=== PATIENT | male | born 1960 | race Caucasian/White ===

== ENCOUNTER 2019-06-07 16:28 | Outpatient (CLI) | payer OTHER, SELFPAY ==
--- NOTE | 2019-06-07 | XR_ITS ---
WS: [id number] Chest 2 views, 06/07/2019 Clinical Data: COUGH PERSISTANT Comparison: PA and lateral chest, 03/06/2018. Findings: No nodules, masses or effusions are seen. The heart is normal. The pulmonary vascularity is not increased. No pneumonia or pneumothorax is seen. XR/XR chest 2V* [id number] Impression: Negative chest.
== END 2019-06-07 16:29 | disposition home or self-care (01) ==
LOC: RADOUTREAD 16:36
PROVIDERS: Family Provider Nurse Practitioner; PCP Nurse Practitioner; Referring Provider Nurse Practitioner Family; Visit Provider Nurse Practitioner Family
DX: R05 Cough (principal)

== ENCOUNTER → 2021-06-04 08:47 | Outpatient (BNVA) | payer OTHER, SELFPAY | PROVIDERS: Visit Provider Nurse Practitioner | DX: I10 Essential (primary) hypertension (principal) | CPT/HCPCS: 80053; 80061; 81000; 84443; 85025 ==

== ENCOUNTER 2021-06-21 08:28 | Outpatient (CLI) | payer OTHER, SELFPAY ==
--- NOTE | 2021-06-21 10:00 | CT_ITS ---
WS: [id number] CT ABDOMEN AND PELVIS NONCONTRAST HISTORY: R10.9 - Unspecified abdominal pain TECHNIQUE: Imaging performed through the abdomen and pelvis. Coronal and sagittal reformats are submi tted. All CT scans at [facility] use at least one of these dose optimization techniques: auto mated exposure control; mA and/or kV adjustment per patient size (includes targeted exams where dose is matched to clinical indication); or iterative reconstruction. DLP: 1632.03 mGy.cm COMPARISON: None available. Lower thorax: Lung bases are clear. Moderate cardiomegaly. Small hiatal hernia. Oral contrast in the distal esophagus. Liver: Mild heterogeneity and hepatic steatosis. There are a few scattered granulomata. Limited visua lization and evaluation of the liver without IV contrast. No mass identified. Gallbladder: Normal gallbladder. Pancreas: Normal size and attenuation. Normal pancreatic duct. No pancreatitis or mass. Spleen: Normal spleen with granulomata. Adrenal glands: Normal. No mass. Right kidney: Normal size kidney. Nonobstructing calcifications in the lower pole. No hydronephrosis or mass identified. Left kidney: Normal size kidney with no mass or hydronephrosis. Aorta: Mild atherosclerosis abdominal aorta with no aneurysm. No free fluid, intraperitoneal air or significant lymphadenopathy. GI tract: Hooks distended stomach. No small bowel obstruction. The appendix is not definitely identi fied. No history of appendicitis. There is no evidence for acute appendicitis. No submucosal thickeni ng. There are several diverticula in the sigmoid colon without obstruction. Abdominal wall: Negative. No hernia. Pelvis: Prostate gland calcification. Prostate is not significantly enlarged. Visualized bladder is n ormal. No adenopathy or fluid. Osseous structures: Moderate degenerative disc disease at L4-5 and L5-S1. Sclerotic focus in the LEFT femoral neck is probably a bone island. CT/CT abdomen pelvis wo con [id number] IMPRESSION: 1. Mild sigmoid diverticulosis without acute diverticulitis. 2. Mild atherosclerosis aorta. 3. Hepatic steatosis. 4. No ascites or adenopathy.
[2021-06-21] MEDS: iohexol 300 mg/mL 50 mL Btl PO (13:14)
== END 2021-06-21 08:29 | disposition home or self-care (01) ==
LOC: RAD 08:34
PROVIDERS: PCP Nurse Practitioner; Visit Provider Nurse Practitioner
DX: K57.30 Diverticulosis of large intestine without perforation or abscess without bleeding (principal); I70.0 Atherosclerosis of aorta; K76.0 Fatty (change of) liver, not elsewhere classified
CPT/HCPCS: 74176

== ENCOUNTER → 2021-07-19 10:37 | Outpatient (BNVA) | payer OTHER, SELFPAY | PROVIDERS: PCP Nurse Practitioner; Visit Provider Nurse Practitioner Family | DX: Z20.822 Contact with and (suspected) exposure to COVID-19 (principal); R05.9 Cough, unspecified | CPT/HCPCS: 87400; 87635 ==

== ENCOUNTER → 2021-09-04 10:40 | Outpatient (BNVA) | payer OTHER, SELFPAY | PROVIDERS: PCP Nurse Practitioner; Visit Provider Nurse Practitioner | DX: I10 Essential (primary) hypertension (principal) | CPT/HCPCS: 80053; 80061 ==

== ENCOUNTER → 2021-12-04 08:16 | Outpatient (BNVA) | payer OTHER, SELFPAY | PROVIDERS: PCP Nurse Practitioner; Visit Provider Nurse Practitioner | DX: I10 Essential (primary) hypertension (principal); E78.5 Hyperlipidemia, unspecified | CPT/HCPCS: 80053; 80061; 85025 ==

== ENCOUNTER 2022-05-17 05:36 | Day surgery (SDC) | payer OTHER, SELFPAY ==
[2022-05-15 08:05] VITALS: BMI 30.5
[2022-05-17 05:59] VITALS: BP 117/88; PULSE 66; RESP 18; TEMP 36.1; O2SAT 96
[2022-05-17] MEDS: sodium chloride 0.9% 1,000 ML 30 ML IV (06:07)
--- NOTE | 2022-05-17 06:45 | ANES.PREANE2 ---
Pre-Anesthetic Assessment Height/Weight: Height 1.83 m Weight 102.058 kg Temp Pulse Resp BP Pulse Ox O2 Del Method 97 F L 66 18 117/88 96 05/17/22 05:59 05/17/22 05:59 05/17/22 05:59 05/17/22 05:59 05/17/22 05:59 05/17/22 05:59 Preop Diagnosis: positive colorectal cancer screening Operation Date: 05/17/22 07:00 Proposed Procedures p Colonoscopy 05977,R19.5(Not Applicable) - Doug Velasco DO Familial anesthetic complications: None Was Beta Radha taken within 24 hours: N/A Was Clonidine taken within 24 hours: N/A Last intake: Intake Last Liquid Date 05/16/22 Last Liquid Time 20:30 Last Solid Date 05/15/22 Last Solid Time 18:00 Social Alcohol (daily ) and Tobacco (chew ) Exam alert, oriented x 3, clear to auscultation bilaterally and regular rate & rhythm Airway Submandibular: within normal limits Cervical ROM: within normal limits Mallampati: Class II Dentition: other (poor dentition, multiple broken/ chipped) History/ROS No significant history except as noted Pulmonary None reported CV/HEM Atrial Fibrillation (last Xarelto dose 05/15/22) and Hypertension None reported Hepatic None reported GI None reported Metabolic None reported Musc/skel None reported Neuropsych None reported Anesthetic Plan ASA status: 3 Anesthesia: Anesthesia Evaluation and MAC Risk of > 500 ml blood loss (7ml/kg in children): No Medications/Allergies Home Medications Medication Instructions Recorded Confirmed Last Taken Type B.coagulans 2 billion 1 cap PO DAILY 06/04/21 05/17/22 05/16/22 History cell-digestive enzymes combo no.10 capsule (Digestive Advantage Probiotics Plus Gas) ibuprofen 200 mg capsule 200 mg PO Q6H PRN Pain 06/04/21 05/17/22 05/16/22 History omega-3 fatty acids 1,000 mg 1,000 mg PO DAILY 06/04/21 05/15/22 05/15/22 History capsule (Fish Oil Concentrate) aspirin 81 mg tablet,delayed 81 mg PO DAILY #90 tabs 07/09/21 05/17/22 05/16/22 Rx release (Adult Low Dose Aspirin) irbesartan 300 mg tablet (Avapro) 300 mg PO DAILY #90 tabs 01/02/22 05/17/22 05/16/22 Rx rivaroxaban 2.5 mg tablet (Xarelto) 2.5 mg PO BID #60 tabs 01/02/22 05/17/22 05/16/22 Rx rosuvastatin 5 mg tablet (Crestor) 5 mg PO DAILY #90 tabs 01/02/22 05/17/22 05/16/22 Rx diltiazem HCl 300 mg 300 mg PO DAILY #90 caps 04/15/22 05/17/22 05/16/22 Rx capsule,extended release 24 hr Allergies Allergy/AdvReac Type Severity Reaction Status Date / Time No Known Allergies Allergy Verified 05/15/22 08:02 Current Medications Generic Name Dose Route Start Last Admin Trade Name Alyq PRN Reason Stop Dose Admin Sodium Chloride 1,000 mls @ 30 mls/hr 05/17/22 06:00 05/17/22 06:07 Sodium Chloride 0.9% IV 05/18/22 05:59 30 mls/hr .Q24H CROW Administration PFSH Anesthesia Medical History Diverticula, colon Dyslipidemia Essential hypertension Fatty infiltration of liver Paroxysmal atrial fibrillation Surgical History History of shoulder surgery Bilateral History of surgery on wrist Carpel tunnel bilateral Family History Mother Diabetes Hypertension Father Hypertension Grandfather Hypertension Other Heart disease Denies family history of Chronic kidney disease (CKD) Suicide Lung disease Cancer Stroke Social History Smoking and tobacco status: current every day smoker (chews) smokeless tobacco Second hand smoke exposure: No Smoking risk assessment/counseling performed?: No Alcohol intake: current Alcohol intake frequency: 0-2 Drinks per Day Alcohol type: beer Desire information about alcohol rehabilitation?: No Counseling given: No Desire information about substance/drug rehabilitation?: No Counseling given: No Adopted: No Caregiver/support person: No Lives independently: Yes Household members: spouse Housing: House Marital status: Number of children: 3 service: No Current occupational status: employed Pets and animals: Yes History of recent travel: No Current gender identity: Male Data Anesthesia Cardiac Studies: No Data to Display
--- NOTE | 2022-05-17 07:02 | PM.HP ---
Providers/Chief Complaint Primary Care Provider: NEGRITA Bean Chief Complaint: Other fecal abnormalities History of Present Illness Ernesto Winslow is a 62 year old male here for colonoscopy Medications/Allergies Home Medications Medication Instructions Recorded Confirmed Last Taken Type B.coagulans 2 billion 1 cap PO DAILY 06/04/21 05/17/22 05/16/22 History cell-digestive enzymes combo no.10 capsule (Digestive Advantage Probiotics Plus Gas) ibuprofen 200 mg capsule 200 mg PO Q6H PRN Pain 06/04/21 05/17/22 05/16/22 History omega-3 fatty acids 1,000 mg 1,000 mg PO DAILY 06/04/21 05/15/22 05/15/22 History capsule (Fish Oil Concentrate) aspirin 81 mg tablet,delayed 81 mg PO DAILY #90 tabs 07/09/21 05/17/22 05/16/22 Rx release (Adult Low Dose Aspirin) irbesartan 300 mg tablet (Avapro) 300 mg PO DAILY #90 tabs 01/02/22 05/17/22 05/16/22 Rx rivaroxaban 2.5 mg tablet (Xarelto) 2.5 mg PO BID #60 tabs 01/02/22 05/17/22 05/16/22 Rx rosuvastatin 5 mg tablet (Crestor) 5 mg PO DAILY #90 tabs 01/02/22 05/17/22 05/16/22 Rx diltiazem HCl 300 mg 300 mg PO DAILY #90 caps 04/15/22 05/17/22 05/16/22 Rx capsule,extended release 24 hr Allergies Allergy/AdvReac Type Severity Reaction Status Date / Time No Known Allergies Allergy Verified 05/15/22 08:02 PFSH Acute PFSH: Medical History Diverticula, colon Dyslipidemia Essential hypertension Fatty infiltration of liver Paroxysmal atrial fibrillation Surgical History History of shoulder surgery Bilateral History of surgery on wrist Carpel tunnel bilateral Family History Mother Diabetes Hypertension Father Hypertension Grandfather Hypertension Other Heart disease Denies family history of Chronic kidney disease (CKD) Suicide Lung disease Cancer Stroke Social History Smoking and tobacco status: current every day smoker (chews) smokeless tobacco Second hand smoke exposure: No Smoking risk assessment/counseling performed?: No Alcohol intake: current Alcohol intake frequency: 0-2 Drinks per Day Alcohol type: beer Desire information about alcohol rehabilitation?: No Counseling given: No Desire information about substance/drug rehabilitation?: No Counseling given: No Adopted: No Caregiver/support person: No Lives independently: Yes Household members: spouse Housing: House Marital status: Number of children: 3 service: No Current occupational status: employed Pets and animals: Yes History of recent travel: No Current gender identity: Male Vitals/I&O/Wt Last Vital Signs Temp 97 F L 05/17/22 05:59 Pulse 66 05/17/22 05:59 Resp 18 05/17/22 05:59 BP 117/88 05/17/22 05:59 Pulse Ox 96 05/17/22 05:59 O2 Del Method 05/17/22 05:59 Weight last 48 hrs Weight 225 lb A&P Assessment and plan (1) Positive colorectal cancer screening using Cologuard test: Plan Colonoscopy Attestations Medical Necessity Statement*: Home Coding Level of Care Code Acute 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
[2022-05-17 07:33] VITALS: BP 122/84; PULSE 75; RESP 20; TEMP 36.1; O2SAT 97
[2022-05-17 07:47] VITALS: BP 117/77; PULSE 64; RESP 20; O2SAT 97
--- NOTE | 2022-05-17 14:34 | ANE.PACU2 ---
Inpatient post-anesthesia follow up: Airway intact: Yes Vital signs: Temperature 97 F Pulse Rate 64 Respiratory Rate 20 Blood Pressure 117/77 Pulse Oximetry 97 Oxygen Delivery Me thod Room Air Oxygen Flow Rate 3 Fraction of Inspir ed Oxygen Hydration adequate: Yes Nausea and vomiting: No Pain level: 1 Mental status: Baseline
== END 2022-05-17 07:55 | disposition home or self-care (01) ==
PROVIDERS: PCP Nurse Practitioner; Visit Provider Surgery
PROC: 0DJD8ZZ Inspection of Lower Intestinal Tract, Via Natural or Artificial Opening Endoscopic (ICD-10-PCS; CPT 45378; principal; 2022-05-17 07:00)
DX: R19.5 Other fecal abnormalities (principal); D12.2 Benign neoplasm of ascending colon; D12.5 Benign neoplasm of sigmoid colon; D12.8 Benign neoplasm of rectum; K57.30 Diverticulosis of large intestine without perforation or abscess without bleeding; Z79.82 Long term (current) use of aspirin; E78.5 Hyperlipidemia, unspecified; I10 Essential (primary) hypertension; I48.0 Paroxysmal atrial fibrillation; F17.220 Nicotine dependence, chewing tobacco, uncomplicated
CPT/HCPCS: 45385; 88305; J2704; J7030

== ENCOUNTER → 2023-01-01 08:17 | Outpatient (BNVA) | payer OTHER, SELFPAY | PROVIDERS: PCP Nurse Practitioner; Visit Provider Nurse Practitioner | DX: Z12.5 Encounter for screening for malignant neoplasm of prostate (principal); E78.5 Hyperlipidemia, unspecified; I10 Essential (primary) hypertension; I48.91 Unspecified atrial fibrillation; K76.0 Fatty (change of) liver, not elsewhere classified | CPT/HCPCS: 80053; 80061; 85025; G0103 ==

== ENCOUNTER → 2023-07-01 13:43 | Outpatient (BNVA) | payer OTHER, SELFPAY | PROVIDERS: PCP Nurse Practitioner; Visit Provider Nurse Practitioner | DX: I10 Essential (primary) hypertension (principal); I48.91 Unspecified atrial fibrillation | CPT/HCPCS: 80053; 80061; 85025 ==

== ENCOUNTER → 2023-12-23 13:21 | Outpatient (BNVA) | payer OTHER, SELFPAY | PROVIDERS: PCP Nurse Practitioner; Visit Provider Nurse Practitioner | DX: I10 Essential (primary) hypertension (principal); I48.20 Chronic atrial fibrillation, unspecified | CPT/HCPCS: 80053; 80061; 85025 ==

== ENCOUNTER → 2024-06-15 08:35 | Outpatient (BNVA) | payer OTHER, SELFPAY | PROVIDERS: PCP Nurse Practitioner; Visit Provider Nurse Practitioner | DX: I10 Essential (primary) hypertension (principal); I48.91 Unspecified atrial fibrillation; E78.5 Hyperlipidemia, unspecified; Z12.5 Encounter for screening for malignant neoplasm of prostate | CPT/HCPCS: 80053; 80061; G0103 ==

== ENCOUNTER 2024-09-26 14:48 | Inpatient (IN) | payer OTHER, SELFPAY ==
[2024-09-26] VITALS (40 sets, daily range): BP systolic 123–171; BP diastolic 73–105; PULSE 47–71; RESP 12–26; TEMP 36.4–36.8; O2SAT 93–99
--- NOTE | 2024-09-26 14:52 | XRR_ITS ---
PROCEDURE INFORMATION: Exam: XR Chest Exam date and time: 09/26/2024 3:04 PM Age: 64 years old Clinical indication: Pain; Chest pressure; Additional info: Cp TECHNIQUE: Imaging protocol: Radiologic exam of the chest. Views: 1 view. COMPARISON: CR XR chest 2V* [id number] 06/07/2019 10:02 AM FINDINGS: Lungs: Unremarkable. No consolidation. Pleural spaces: Unremarkable. No pleural effusion. No pneumothorax. Heart/Mediastinum: Unremarkable. No cardiomegaly. Bones/joints: Unremarkable. XR/XR chest 1V portable [id number] IMPRESSION: No acute findings.
--- NOTE | 2024-09-26 14:56 | ECG_ITS ---
[facility]24[facility]26 Pat Name: Ernesto Winslow Department: Room: Gender: Male Patient Access Manager: : 1960 Requested By: Marcella Cotton Order Number: [id number] Reading MD: DARYL NAQVI Measurements Intervals [place] Rate: 74 P: 0 RI: 0 QRS: 58 QRSD: 91 T: 92 QT: 360 QTc: 400 Interpretive Statements ATRIAL FIBRILLATION NONSPECIFIC ST & T-WAVE ABNORMALITY ABNORMAL RHYTHM ECG No previous ECG available for comparison Electronically Signed On 09-27-2024 20:59:07 CDT by DARYL NAQVI [email or web address]
[2024-09-26 15:20] LABS: Basophils % 0.4 %; Eosinophils # 0.1 10^3/uL (0.0-0.8); Eosinophils % 0.8 %; Hematocrit 44.4 % (37-53); Lymphocytes # 1.6 10^3/uL (0.8-4.8); Lymphocytes % 19.9 %; Mean Corpuscular HGB Conc 33.1 g/dL (30-55); Mean Corpuscular Hemoglobin 31.1 pg (27-33); Mean Corpuscular Volume 94.1 fl (82-101); Mean Platelet Volume 10.2 fL (7.4-10.4); Monocytes # 0.7 10^3/uL (0.2-0.9); Monocytes % 8.8 %; Neutrophils # 5.48 10^3/uL (1.8-7.7); Neutrophils % 69.8 %; Nucleated Red Blood Cells % 0 %; Platelet Count 191 10^3/cmm (157-399); Red Blood Count 4.72 10^6/uL (3.85-5.65); Red Cell Distribution Width 12.4 % (12.1-15.1); White Blood Count 7.84 10^3/uL (3.29-11.43)
[2024-09-26 15:32] LABS: INR 1.05 (0.8-1.2)
[2024-09-26 15:37] LABS: Alanine Aminotransferase 28 U/L (0-41); Albumin Level 4.4 g/dL (3.5-5.2); Alkaline Phosphatase 84 U/L (40-130); Anion Gap 16.2 (5-19); Aspartate Amino Transferase 18 U/L (0-40); Blood Urea Nitrogen 14 mg/dL (8-23); Carbon Dioxide 24 mmol/L (22-29); Chloride 99 mmol/L (98-107); Creatinine Clr Calc Pharmacy 117.7849; Globulin 2.8 g/dL (1.3-4.6); Glomerular Filtration Rate 97.6 mL/min (90-130); Glucose 97 mg/dL (65-115); Lipase 21 U/L (13-60); Osmolality Calculated 280 mOsm/kg (285-295); Potassium 4.2 mmol/L (3.5-5.1); Sodium 135 mmol/L (136-145); Total Bilirubin 0.3 mg/dL (0.15-1.2); Total Protein 7.2 g/dL (6.6-8.7)
[2024-09-26 15:38] LABS: Troponin(5th) Baseline 30 ng/L (0-15)
--- NOTE | 2024-09-26 15:49 | W.ED.CHESTPA ---
HPI - Chest Pain General: Chief Complaint: Chest Pain Stated Complaint: cp/tingle in left arm Time Seen by Provider: 09/26/24 15:26 Source: patient Mode of arrival: ambulatory Limitations: no limitations History of Present Illness: Patient is a very nice 64-year-old male presents to ED today with what he describes as heartburn over the past week. Patient states he is having pain/burning in the center of his chest that is only present with exertion. 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 Symptoms seem to fully alleviate with rest. When he does have pain, he has associated shortness of breath. Patient states he chronically has some degree of dyspnea following COVID several years ago. He feels like the pain in his chest radiates back to between my shoulder blades . Has tried Tums during these episodes without any improvement. PMH is significant for HTN, hyperlipidemia, obesity-BMI 31.1, and atrial fibrillation. He states he had a brother that had triple bypass surgery in his late 50s as well as a father that required triple bypass surgery. During my examination, patient tells me he is not having any discomfort-currently rating it a 1/10. He does report a history of acid reflux and has apparently been treating this with some type of vinegar. complaint: other (chest burning heartburn with exertion; alleviated by rest) Onset (ago): week(s) Timing of current episode: episodic Onset: during exertion Pain location: substernal Pain radiation: back Quality: burning Relieving factors: rest Exacerbating factors: exertion Associated symptoms: Reports no associated symptoms; Deny abdominal pain, fever(s), nausea, palpitations, syncope or vomiting Treatment prior to arrival: none Risk Factors: Coronary artery disease risk factors: hyperlipidemia and hypertension Thoracic aortic dissection risk factors: none Related Data Home Medications ?Medication ?Instructions ?Recorded ?Confirmed B.coagulans 2 billion 1 cap PO DAILY 06/04/21 06/15/24 cell-digestive enzymes combo no.10 capsule (Digestive Advantage Probiotics Plus Gas) omega-3 fatty acids 1,000 mg 1,000 mg PO DAILY 06/04/21 06/15/24 capsule (Fish Oil Concentrate) Previous Rx's ?Medication ?Instructions ?Recorded aspirin 81 mg tablet,delayed 81 mg PO DAILY #90 tabs 07/09/21 release (Adult Low Dose Aspirin) diltiazem HCl 300 mg 300 mg PO DAILY #90 caps 06/15/24 capsule,extended release 24 hr hydralazine 25 mg tablet 25 mg PO BID #90 tabs 06/15/24 irbesartan 300 mg tablet (Avapro) 300 mg PO DAILY #90 tabs 06/15/24 rivaroxaban 2.5 mg tablet (Xarelto) 2.5 mg PO BID #60 tabs 06/15/24 rosuvastatin 5 mg tablet 5 mg PO DAILY #90 tabs 06/15/24 Allergies Allergy/AdvReac Type Severity Reaction Status Date / Time No Known Allergies Allergy Verified 09/26/24 15:01 Review of Systems Const: Denies: fever(s), chills, body aches, fatigue or malaise Card: Reports: chest pain and dyspnea on exertion; Denies: palpitations, irregular heart rhythm, edema, swelling of feet/ankles, lightheadedness, syncope, pre-syncope, orthopnea, leg pain with exertion or acrocyanosis Resp: Denies: productive cough, non-productive cough, pain on inspiration, change in phlegm color or chest congestion GI: Denies: abdominal pain, nausea, vomiting or diarrhea : Denies: flank pain, dysuria or hematuria Musc: Denies: neck pain, back pain, extremity pain, extremity swelling, joint pain, joint swelling or joint redness Skin/Breast: Denies: rash Neuro: Denies: headache(s), numbness in extremities, weakness in extremities, sensory changes or dizziness PFSH ED PFSH: Medical History Myelopathy of lumbar region Tubular adenoma of colon Dyslipidemia Diverticula, colon Fatty infiltration of liver Essential hypertension Paroxysmal atrial fibrillation Surgical History History of colonoscopy with polypectomy May 2022 in 3-5 year follow up. History of surgery on wrist Carpel tunnel bilateral History of shoulder surgery Bilateral Family History Mother Diabetes Hypertension Heart disease Father Hypertension Heart disease Grandfather Hypertension Other Hyperlipidemia Denies family history of CAD (coronary artery disease) Clotting disorder Dementia Psychiatric illness Chronic kidney disease (CKD) Suicide Anesthesia complication Bleeding disorder Family history of premature coronary artery disease Lung disease Cancer Stroke Social History Smoking and tobacco/nicotine status: current every day tobacco/nicotine user smokeless tobacco Second hand smoke exposure: No Alcohol intake: current Alcohol intake frequency: 0-2 Drinks per Day Alcohol type: beer Substance/Drug Use: never Adopted: No Caregiver/support person: No Lives independently: Yes Household members: spouse Housing: House Marital status: Number of children: 3 service: No Current occupational status: employed Pets and animals: Yes Do you think of yourself as: Straight/Heterosexual Current gender identity: Male Physical Exam Const: COMMON NORMALS: no acute distress, patient oriented x3, no limitations, alert and well nourished GENERAL APPEARANCE: cooperative NUTRITIONAL APPEARANCE: obese (BMI 31.1) ORIENTATION/CONSCIOUSNESS: Yes awake, Yes oriented to person, Yes oriented to place and Yes oriented to time Neck/C-Spine: COMMON NORMALS: negative for no lymphadenopathy GENERAL: No anterior neck swelling and No submandibular swelling Chest: COMMONS NORMALS: normal inspection of the chest and normal palpation of entire chest wall Resp: COMMON NORMALS: normal respiratory effort and clear to auscultation bilaterally AUSCULTATION: clear to auscultation bilaterally Cardio: COMMON NORMALS: regular rate and regular rhythm RATE: regular rate RHYTHM: regular rhythm GI: COMMON NORMALS: Normal to inspection, nondistended, normoactive bowel sounds present, Soft to palpation and non-tender PALPATION: Yes Soft to palpation Extremity: COMMON NORMALS: no clubbing, cyanosis or edema, no calf tenderness and no pedal edema GENERAL: Yes normal exam except as noted Neuro: COMMON NORMALS: patient oriented x3 SENSORIUM/ORIENTATION: Yes alert, Yes oriented to person, Yes oriented to place and Yes oriented to time Course Consultations: Consultation #1: Dr. Woodard-accepts hospitalization to [facility] Vital Signs: Vital signs: Vital Signs Temperature 98.1 F 09/26/24 14:58 Pulse Rate 59 L 09/26/24 16:35 Respiratory Rate 20 H 09/26/24 16:35 Blood Pressure 160/85 09/26/24 16:35 Pulse Oximetry 98 09/26/24 16:35 Oxygen Delivery Me thod Room Air 09/26/24 15:34 MDM - Chest Pain Medical Decision Making Patient's history very concerning for cardiac etiology. He has significant risk factors including strong family history, obesity, hypertension, hyperlipidemia. His baseline troponin is elevated at 30. HEART score would be 6. Baseline EKG showing rate controlled atrial fibrillation-possible non-specific T wave changes. Spoke to hospitalist Dr. Woodard who is agreeable to admission. Medical Records I reviewed the patient's medical records. Lab Data I reviewed the patient's lab results. 09/26/24 15:15 09/26/24 15:15 Radiology Impressions Chest X-Ray 09/26/24 14:52 IMPRESSION: No acute findings. Laboratory Results WBC 7.84 10^3/uL (3.29-11.43) 09/26/24 15:15 RBC 4.72 10^6/uL (3.85-5.65) 09/26/24 15:15 Hgb 14.70 g/dL (11.27-16.99) 09/26/24 15:15 Hct 44.4 % (37-53) 09/26/24 15:15 MCV 94.1 fl (82-101) 09/26/24 15:15 MCH 31.1 pg (27-33) 09/26/24 15:15 MCHC 33.1 g/dL (30-55) 09/26/24 15:15 RDW 12.4 % (12.1-15.1) 09/26/24 15:15 Plt Count 191 10^3/cmm (157-399) 09/26/24 15:15 MPV 10.2 fL (7.4-10.4) 09/26/24 15:15 Neut % (Auto) 69.8 % 09/26/24 15:15 Lymph % (Auto) 19.9 % 09/26/24 15:15 Sawyer % (Auto) 8.8 % 09/26/24 15:15 Eos % (Auto) 0.8 % 09/26/24 15:15 Baso % (Auto) 0.4 % 09/26/24 15:15 Neut # (Auto) 5.48 10^3/uL (1.8-7.7) 09/26/24 15:15 Lymph # (Auto) 1.6 10^3/uL (0.8-4.8) 09/26/24 15:15 Sawyer # (Auto) 0.7 10^3/uL (0.2-0.9) 09/26/24 15:15 Eos # (Auto) 0.1 10^3/uL (0.0-0.8) 09/26/24 15:15 Baso # (Auto) 0.0 10^3/uL (0.0-0.1) 09/26/24 15:15 Nucleated RBC % (auto) 0 % 09/26/24 15:15 Nucleated RBCs # 0.0 /100WBC 09/26/24 15:15 PT 14.50 SECONDS (12.1-14.9) 09/26/24 15:15 INR 1.05 (0.8-1.2) 09/26/24 15:15 Sodium 135 mmol/L (136-145) L 09/26/24 15:15 Potassium 4.2 mmol/L (3.5-5.1) 09/26/24 15:15 Chloride 99 mmol/L (98-107) 09/26/24 15:15 Carbon Dioxide 24 mmol/L (22-29) 09/26/24 15:15 Anion Gap 16.2 (5-19) 09/26/24 15:15 BUN 14 mg/dL (8-23) 09/26/24 15:15 Creatinine 0.8 mg/dL (0.7-1.2) 09/26/24 15:15 GFR Calculation 97.6 mL/min (90-130) 09/26/24 15:15 Glucose 97 mg/dL (65-115) 09/26/24 15:15 Calculated Osmolality 280 mOsm/kg (285-295) L 09/26/24 15:15 Calcium 9.0 mg/dL (8.5-10.5) 09/26/24 15:15 Total Bilirubin 0.3 mg/dL (0.15-1.2) 09/26/24 15:15 AST 18 U/L (0-40) 09/26/24 15:15 ALT 28 U/L (0-41) 09/26/24 15:15 Alkaline Phosphatase 84 U/L (40-130) 09/26/24 15:15 Troponin T Baseline 30 ng/L (0-15) H 09/26/24 15:15 NT-Pro-B Natriuret Pep 637 pg/mL (0-125) H 09/26/24 15:15 Total Protein 7.2 g/dL (6.6-8.7) 09/26/24 15:15 Albumin 4.4 g/dL (3.5-5.2) 09/26/24 15:15 Globulin 2.8 g/dL (1.3-4.6) 09/26/24 15:15 Lipase 21 U/L (13-60) 09/26/24 15:15 All radiology interpretation(s) finalized by discharge Discharge Plan Discharge Patient Disposition: Admitted As Inpatient Clinical Impression: Exertional chest pain, Elevated troponin Condition: Stable Coding Level of Care Code ED Bond Clerk for Toshia Pinon
--- NOTE | 2024-09-26 16:28 | USCV_ITS ---
Ernesto Winslow Age: 64 Gender: M : 1960 Exam Date: 09/26/2024 17:13 Ordering Phys: Freddie Woodard MD Technologist: Emile Serna Exam Location: [facility] [place] Indication: sob BP: 160 / 85 HR: 55 Rhythm: Sinus Technical Quality: Adequate MEASUREMENTS (Male / Female) Normal Values 2D ECHO LV Diastolic Diameter PLAX 5.5 cm 4.2 - 5.9 / 3.9 - 5.3 cm IVS Diastolic Thickness 1.4 cm 0.6 - 1.0 / 0.6 - 0.9 cm IVS Systolic Thickness 1.5 cm LVPW Diastolic Thickness 1.3 cm 0.6 - 1.0 / 0.6 - 0.9 cm LVPW Systolic Thickness 2.1 cm LVOT Diameter 2.1 cm LV Ejection Fraction 2D Teich 67.7 % LV Ejection Fraction MOD 4C 67.1 % LV Ejection Fraction MOD 2C 58.6 % LV Ejection Fraction 2C AL 58.8 % LA Diameter 4.5 cm RA Systolic Volume 4C AL 56.5 ml RA Systolic Volume 4C MOD 56.5 ml LA Sys Volume AL 68.2 cm cubed LA Sys Volume Index AL 29.3 cm cubed/m squared Aorta at Sinotubular Diameter 2.6 cm IVC Diameter 1.8 cm M-MODE LA Ao Ratio MM 1.7 AV Cusp Separation MM 1.9 cm DOPPLER AV Peak Velocity 112.3 cm/s LVOT Peak Velocity 99.0 cm/s AV Area Cont Eq vti 3.1 cm squared AV Area Cont Eq pk 2.9 cm squared MV Peak Velocity 114.0 cm/s MV Area PHT 5.6 cm squared Mitral E to A Ratio 2.7 TR Peak Velocity 393.0 cm/s TR Peak Gradient 61.8 mmHg TR Mean Velocity 317.0 cm/s TR Mean Gradient 41.9 mmHg TR Velocity Time Integral 97.1 cm PV Peak Velocity 99.0 cm/s RV Ejection Time 0.3 s FINDINGS Left Ventricle Left ventricle is normal in size. LV systolic function is normal with EF of 55-60%. No regional wall motion abnormalities are seen. Right Ventricle Normal in size and function Right Atrium Normal in size Left Atrium Normal in size Mitral Valve Grossly normal. Mild mitral regurgitation. Aortic Valve Grossly normal. No significant stenosis. Mild aortic regurgitation. Tricuspid Valve Mild tricuspid regurgitation. Pulmonary artery systolic pressure is normal Pulmonic Valve Trace pulmonic regurgitation. Pericardium Normal Aorta Normal in size IVC Appears to be normal CONCLUSIONS LV systolic function is normal with EF of 55-60% Mild mitral regurgitation Mild aortic regurgitation Mild tricuspid regurgitation Trace pulmonic regurgitation. Adilson Dow MD (Electronically Signed) Final Date: 28 September 2024 08:27 S
--- NOTE | 2024-09-26 16:29 | PM.HP ---
Providers/Chief Complaint Primary Care Provider: Florencio Cortes, JANETTC Chief Complaint: cp/tingle in left arm History of Present Illness Ernesto Winslow is a 64 year old male with a past medical history of hypertension, atrial fibrillation, on Xarelto, hyperlipidemia, obesity, extensive family history of CAD who presents to [facility] for chest discomfort. Currently patient alert oriented x 3, following commands, family members are at bedside., According to patient, whenever he exerts himself, he starts developing anterior chest discomfort, almost like a burning sensation, he tells me it has been having more frequently, more severe especially with exertion, no nausea, no vomiting, no diaphoresis, no radiation, he does report a history of a CABG in his father and his brother in their 60s, does report chewing tobacco, does report alcoholism, drinks 6-7 beers a day, denies any drug use, Review of Systems Card: Reports: chest pain Resp: Denies: dyspnea Medications/Allergies Home Medications ?Medication ?Instructions ?Recorded ?Confirmed ?Last Taken ?Type B.coagulans 2 billion 1 cap PO DAILY 06/04/21 06/15/24 05/16/22 History cell-digestive enzymes combo no.10 capsule (Digestive Advantage Probiotics Plus Gas) omega-3 fatty acids 1,000 mg 1,000 mg PO DAILY 06/04/21 06/15/24 05/15/22 History capsule (Fish Oil Concentrate) aspirin 81 mg tablet,delayed 81 mg PO DAILY #90 tabs 07/09/21 06/15/24 05/16/22 Rx release (Adult Low Dose Aspirin) diltiazem HCl 300 mg 300 mg PO DAILY #90 caps 06/15/24 06/15/24 Unknown Rx capsule,extended release 24 hr hydralazine 25 mg tablet 25 mg PO BID #90 tabs 06/15/24 06/15/24 Unknown Rx irbesartan 300 mg tablet (Avapro) 300 mg PO DAILY #90 tabs 06/15/24 06/15/24 Unknown Rx rivaroxaban 2.5 mg tablet (Xarelto) 2.5 mg PO BID #60 tabs 06/15/24 06/15/24 Unknown Rx rosuvastatin 5 mg tablet 5 mg PO DAILY #90 tabs 06/15/24 06/15/24 Unknown Rx Allergies Allergy/AdvReac Type Severity Reaction Status Date / Time No Known Allergies Allergy Verified 09/26/24 15:01 PFSH Acute PFSH: Medical History Myelopathy of lumbar region Tubular adenoma of colon Dyslipidemia Diverticula, colon Fatty infiltration of liver Essential hypertension Paroxysmal atrial fibrillation Surgical History History of colonoscopy with polypectomy May 2022 in 3-5 year follow up. History of surgery on wrist Carpel tunnel bilateral History of shoulder surgery Bilateral Family History Mother Diabetes Hypertension Heart disease Father Hypertension Heart disease Grandfather Hypertension Other Hyperlipidemia Denies family history of CAD (coronary artery disease) Clotting disorder Dementia Psychiatric illness Chronic kidney disease (CKD) Suicide Anesthesia complication Bleeding disorder Family history of premature coronary artery disease Lung disease Cancer Stroke Social History Smoking and tobacco/nicotine status: current every day tobacco/nicotine user smokeless tobacco Second hand smoke exposure: No Alcohol intake: current Alcohol intake frequency: 0-2 Drinks per Day Alcohol type: beer Substance/Drug Use: never Adopted: No Caregiver/support person: No Lives independently: Yes Household members: spouse Housing: House Marital status: Number of children: 3 service: No Current occupational status: employed Pets and animals: Yes Do you think of yourself as: Straight/Heterosexual Current gender identity: Male Vitals/I&O/Wt Last Vital Signs Temp 98.1 F 09/26/24 14:58 Pulse 63 09/26/24 16:10 Resp 12 09/26/24 16:10 BP 123/74 09/26/24 16:10 Pulse Ox 97 09/26/24 16:10 O2 Del Method Room Air 09/26/24 15:34 Weight last 48 hrs Weight 103.873 kg Physical Exam Const: COMMON NORMALS: no acute distress and patient oriented x3 Resp: COMMON NORMALS: normal respiratory effort, No retractions, No use of accessory muscles and clear to auscultation bilaterally AUSCULTATION: clear to auscultation bilaterally Cardio: COMMON NORMALS: no JVD, regular rate, regular rhythm, S1 normal heart sound present and S2 normal heart sound present RATE: regular rate RHYTHM: regular rhythm HEART SOUNDS: S1 normal heart sound present and S2 normal heart sound present GI: COMMON NORMALS: Normal to inspection, nondistended, normoactive bowel sounds present, Soft to palpation and non-tender Extremity: COMMON NORMALS: no pedal edema Neuro: COMMON NORMALS: patient oriented x3, CN's II-XII intact bilaterally and moves all extremities Psych: COMMON NORMALS: mental status grossly normal Data 09/26/24 15:15 09/26/24 15:15 A&P Assessment and plan (1) Essential hypertension: (2) Atrial fibrillation: Qualifiers: Atrial fibrillation type: unspecified chronic Qualified Code(s): I48.20 - Chronic atrial fibrillation, unspecified (3) Dyslipidemia: (4) Obesity (BMI 30-39.9): (5) Exertional chest pain: (6) NSTEMI (non-ST elevated myocardial infarction): Plan Chest pain, NSTEMI - Currently chest pain-free - EKG shows ST depressions in lateral leads - Initial troponin 30 Plan - Serial troponins, serial EKGs, telemetry monitoring - Cardiac echo - Aspirin, statin, - Will switch to therapeutic Lovenox - Nitro as needed for chest pain - Morphine as a for chest pain - Lipid panel, A1c, BMP - Drug screen, alcohol level - [facility] protocol - N.p.o. midnight, for cardiac stress test tomorrow morning - Full code - Lovenox for DVT prophylaxis PDMP PDMP Reviewed: Not Reviewed Attestations Medical Necessity Statement*: Patient requires hospitalization, inpatient, greater than 2 midnights, for chest pain, NSTEMI Diagnoses Essential hypertension I10 Chronic atrial fibrillation I48.20 Atrial fibrillation type: unspecified chronic Dyslipidemia E78.5 Obesity (BMI 30-39.9) E66.9 Exertional chest pain R07.9 NSTEMI (non-ST elevated myocardial infarction) I21.4
--- NOTE | 2024-09-26 16:53 | ECG_ITS ---
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
[2024-09-26 17:07] LABS: NT Pro B Type Natriuretic Pept 637 pg/mL (0-125)
[2024-09-26 17:59] LABS: Troponin 5 2HR 44.22 ng/L (0-15)
[2024-09-26 18:01] LABS: Troponin 5 2HR Delta 14.22 ABS# (0-10)
--- NOTE | 2024-09-26 18:38 | ECG_ITS ---
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
[2024-09-26 19:06] LABS: Estmated Average Glucose 100; Hemoglobin A1C 5.1 % (4.0-6.0)
[2024-09-26 19:14] LABS: Chol HDL Ratio 3.12 mg/dL (1.0-5.00); Cholesterol 162 mg/dL (0-200); HDL Cholesterol 52 mg/dL (60-100); LDL Cholesterol Calculated 91 mg/dL (50-129); LDL HDL Ratio 1.75 RATIO (0.00-3.22); Triglycerides 97 mg/dL (0-150)
[2024-09-26 19:15] LABS: Thyroid Stimulating Hormone 0.91 uIU/mL (0.27-4.20)
[2024-09-26 19:18] LABS: Alcohol Level < 10 mg/dL (0-10)
[2024-09-26] MEDS: hyDRALAzine 25 mg Tablet PO (20:03)
[2024-09-26] MEDS: pantoprazole 40 mg SDV IVP (20:03)
[2024-09-26] MEDS: thiamine 100 mg/mL 2mL SDV IM (20:40)
--- NOTE | 2024-09-26 20:52 | ECG_ITS ---
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1960 Requested By: Marcella Cotton Order Number: [id number] Reading MD: DARYL NAQVI Measurements Intervals [place] Rate: 53 P: 0 CA: 0 QRS: 57 QRSD: 94 T: 105 QT: 452 QTc: 425 Interpretive Statements ATRIAL FIBRILLATION WITH SLOW VENTRICULAR RESPONSE ST DEVIATION AND MODERATE T-WAVE ABNORMALITY, CONSIDER ANTEROLATERAL ISCHEMIA [-0.1+ mV T-WAVE IN V3-V6] Compared to ECG 09/26/2024 16:53:55 Possible ischemia now present T-wave abnormality still present Electronically Signed On 09-27-2024 21:01:01 CDT by DARYL NAQVI [id number] [id number]
[2024-09-26 21:23] LABS: Troponin 5 6HR 30.53 ng/L (0-15); Troponin 5 6HR Delta 0.53 ng/L (0-12)
[2024-09-26] MEDS: enoxaparin 100 mg/mL Syringe SUBCUT (22:06)
[2024-09-26 22:14] LABS: Amphetamines Screen Urine Negative (Negative); Barbiturates Screen Urine Negative (Negative); Benzodiazepines Screen Urine Negative (Negative); Cocaine Screen Urine Negative (Negative); Opiate Screen Urine Negative (Negative); PCP Screen Urine Negative (Negative); THC Screen Urine Negative (Negative)
[2024-09-27] VITALS (7 sets, daily range): BP systolic 105–134; BP diastolic 57–84; PULSE 58–76; RESP 14–20; TEMP 36.2–37.1; O2SAT 96–98
[2024-09-27 05:43] LABS: Basophils % 0.5 %; Eosinophils # 0.1 10^3/uL (0.0-0.8); Eosinophils % 1.8 %; Lymphocytes # 2.1 10^3/uL (0.8-4.8); Lymphocytes % 33.8 %; Mean Corpuscular HGB Conc 33.6 g/dL (30-55); Mean Corpuscular Hemoglobin 31.6 pg (27-33); Mean Platelet Volume 11.4 fL (7.4-10.4); Monocytes # 0.7 10^3/uL (0.2-0.9); Monocytes % 10.9 %; Neutrophils # 3.22 10^3/uL (1.8-7.7); Neutrophils % 52.7 %; Nucleated Red Blood Cells % 0 %; Platelet Count 180 10^3/cmm (157-399); Red Blood Count 4.68 10^6/uL (3.85-5.65); Red Cell Distribution Width 12.7 % (12.1-15.1); White Blood Count 6.12 10^3/uL (3.29-11.43)
[2024-09-27 06:07] LABS: Alanine Aminotransferase 26 U/L (0-41); Albumin Level 4.1 g/dL (3.5-5.2); Alkaline Phosphatase 86 U/L (40-130); Aspartate Amino Transferase 19 U/L (0-40); Blood Urea Nitrogen 14 mg/dL (8-23); Calcium 8.8 mg/dL (8.5-10.5); Carbon Dioxide 24 mmol/L (22-29); Chloride 104 mmol/L (98-107); Creatinine Clr Calc Pharmacy 136.2466; Globulin 2.9 g/dL (1.3-4.6); Glomerular Filtration Rate 113.9 mL/min (90-130); Glucose 99 mg/dL (65-115); Osmolality Calculated 289 mOsm/kg (285-295); Sodium 139 mmol/L (136-145); Total Bilirubin 0.2 mg/dL (0.15-1.2)
[2024-09-27 06:09] LABS: Anion Gap 15.2 (5-19); Potassium 4.2 mmol/L (3.5-5.1)
[2024-09-27] MEDS: regadenoson 0.4 Mg/5 ml Syringe IVP (06:57)
[2024-09-27] MEDS: multivitamin therapeutic Tablet 1 TAB PO (08:53)
[2024-09-27] MEDS: dilTIAZem ER (24HR) 300 mg Capsule PO (08:53)
[2024-09-27] MEDS: losartan 50 mg Tablet 100 MG PO (08:53)
[2024-09-27] MEDS: aspirin 81 mg EC Tablet PO (08:53)
[2024-09-27] MEDS: hyDRALAzine 25 mg Tablet PO ×2 (08:53→17:40)
[2024-09-27] MEDS: thiamine 100 mg Tablet PO (08:53)
[2024-09-27] MEDS: ATORVASTATIN 10 MG TABLET 20 MG PO (08:53)
[2024-09-27] MEDS: folic acid 1 mg Tablet PO (08:53)
[2024-09-27] MEDS: enoxaparin 100 mg/mL Syringe SUBCUT (08:55)
--- NOTE | 2024-09-27 09:32 | PC.CHAP ---
Pastoral Care Encounter/Spiritual Assessment Type of Contact [] Declined roll panner visit [] Patient/Family/Request visit [] Outpatient visit [] Follow-up visit [] Physician referral [] Code/Alert [x] Routine visit [] Staff referral [] Actively dying [] Patient sleeping [x] Family support [] [] Out of room [] Palliative care [] [] Receiving care in room [] Pre-surgical visit [] Trauma [] Long length of stay [] ICU visit [] Other: Relational/Emotional Strength [] Patient feels connected with others/family/visitors/staff [] Distress [] Loneliness/isolation [] Abandonment Spirituality of Patient [x] Person of Shikha [] Attends Congregation of their Shikha [x] Believes in Prayer [] Reads Bible or Lutheran materials [] There are Spiritual issues to be addressed Vocational Examiner Interventions [x] Prayer [x] Active listening [] Non-anxious presence [] Spiritual/emotional support [] Crisis/trauma care [] Spiritual counseling [] Bereavement support [] Provided bereavement packet [x] Provided Bible/devotional materials [] Provided toy/stuffed animal, coloring book to patient or family member [] Provided Communion [] Anointing/Emmet [] Salvation [x] Completed spiritual assessment [] Other: Impact on Illness or Injury [] Angry [] Fearful [] Anxious [] Often cries [] Exhaustion [] Unable to work [] Unable to attend anglican [] Unable to walk/stand [] Unable to read [] Unable to drive [] Unable to eat/drink [] Unable to sleep [] Unable to be with family [] Patient intubated [] Other: Summary Time spent with patient 10 min
--- NOTE | 2024-09-27 13:05 | P.PN_ITS ---
Subjective 2 Subjective: Patient was seen this morning, he is sitting up in his chair, enjoying his breakfast, no chest pain during the night, Vitals/I&O/Wt Last Vital Signs Temp 97.1 F L 09/27/24 12:00 Pulse 76 09/27/24 12:00 Resp 20 H 09/27/24 12:00 BP 133/80 09/27/24 12:00 Pulse Ox 98 09/27/24 12:00 O2 Del Method Room Air 09/27/24 12:00 09/26/24 09/27/24 09/27/24 22:59 06:59 14:59 Intake Total 360 / 360 Output Total 125 / 125 Balance -125 / -125 360 / 360 Weight last 48 hrs Weight 106.549 kg Weight 103.873 kg Weight 103.873 kg Physical Exam 2 Const: COMMON NORMALS: no acute distress and patient oriented x3 Resp: COMMON NORMALS: normal respiratory effort, No retractions, No use of accessory muscles and clear to auscultation bilaterally AUSCULTATION: clear to auscultation bilaterally Cardio: COMMON NORMALS: regular rate, regular rhythm, S1 normal heart sound present and S2 normal heart sound present RATE: regular rate RHYTHM: r egular rhythm HEART SOUNDS: S1 normal heart sound present and S2 normal heart sound present GI: COMMON NORMALS: Normal to inspection, nondistended, normoactive bowel sounds present and non-tender Extremity: COMMON NORMALS: no pedal edema Neuro: COMMON NORMALS: patient oriented x3 Psych: COMMON NORMALS: mental status grossly normal Data 09/27/24 05:09 09/27/24 05:09 A&P Assessment and plan (1) Essential hypertension: (2) Atrial fibrillation: Qualifiers: Atrial fibrillation type: unspecified chronic Qualified Code(s): I48.20 - Chronic atrial fibrillation, unspecified (3) Dyslipidemia: (4) Obesity (BMI 30-39.9): (5) Exertional chest pain: (6) NSTEMI (non-ST elevated myocardial infarction): Plan Chest pain, NSTEMI - Currently chest pain-free - EKG shows ST depressions in lateral leads - Initial troponin 30 Plan - Serial troponins, serial EKGs, telemetry monitoring - Cardiac echo - Aspirin, statin, - Will switch to therapeutic Lovenox - Nitro as needed for chest pain - Morphine as a for chest pain - Drug screen, alcohol level - [facility] protocol - Underwent stress testing, spoke to cardiology, cardiology will see, possible cardiac catheterization tomorrow - Full code - Lovenox for DVT prophylaxis PDMP PDMP Reviewed: Not Reviewed Attestations 2 Medical Necessity Statement*: Patient requires hospitalization, inpatient, greater than 2 midnights for NSTEMI, chest pain Diagnoses Essential hypertension I10 Chronic atrial fibrillation I48.20 Atrial fibrillation type: unspecified chronic Dyslipidemia E78.5 Obesity (BMI 30-39.9) E66.9 Exertional chest pain R07.9 NSTEMI (non-ST elevated myocardial infarction) I21.4
--- NOTE | 2024-09-27 14:01 | P.CONIM_ITS ---
<Statement entered by Fabio Soto MD - 09/27/24 20:45> Patient was evaluated and cared for in conjunction with an advanced practice practitioner. I personally examined the patient and reviewed the chart and all pertinent data including imaging, telemetry, and laboratory results. I discussed the patient in detail with the advanced practice practitioner. Please see their note for complete H&P testing result and agreed upon plan of care for the patient. 64-year-old male past medical history significant for coronary artery disease history of PCI presented with typical classic anginal-like picture he was ruled out for acute coronary syndrome underwent stress test which turns out to be significantly positive in the LAD territory. GENERAL: Patient is alert, awake and oriented x3. HEART: Regular S1 and S2. No murmur, rub or gallop. LUNGS: Clear to auscultate bilaterally. CENTRAL NERVOUS SYSTEM: Grossly nonfocal. EXTREMITIES: Lower extremities with out edema bilaterally. Assessment and plan Angina Coronary artery disease Abnormal stress test Patient presented atypical angina rule out for acute coronary syndrome underwent stress returns to be positive. I have detailed discussion with the patient and his by bedside given significant abnormality and ischemia in LAD territory we recommend proceeding with left heart catheterization and PCI if indicated. Patient and agrees with that. Patient understand all risk-benefit and alternative for the procedure he would like to proceed with it. Will proceed in the morning continue aspirin statin beta-sumanth Providers/Reason For Consult 2 Consulting Physician/Specialty*: Fabio Soto MD Reason for Consult*: Chest pain, abnormal stress test Requesting Physician: Dr. Woodard Attending Physician: Freddie Woodard MD Primary Care Provider: NEGRITA Bean History of Present Illness History of Present Illness Ernesto Winslow is a 64 year old male who came into the ER yesterday with what he described as heartburn like symptoms over the past week. He states it was present on exertion and relieved with rest. He is typically very active. At this time denies any chest pain. Denies any shortness of breath or orthopnea. Tropes were mildly positive at 30-44-30 with positive delta. He has a history of paroxysmal A-fib, hypertension and family history of heart disease. EKG shows T wave inversions in the anterolateral leads. A stress test was done and reviewed by Dr. Soto that showed ischemia in the distribution of the LAD. Echo has been ordered but not read. Review of Systems 2 Narrative: Consitutional: denies fever, chills, body aches, or changes in appetite, denies abnormal weight loss Eyes: Denies changes in vision Card: Denies chest pain, palpitations, irregular heart rhythm, edema, syncope, shortness of breath, orthopnea, leg pain with exertion Resp: Denies shortness of breath, denies hemoptysis, denies cough GI: denies abdominal pain, denies nausea or voimting, denies blood in stool : denies blood in urine, denies dysuria Musc: Denies extremity pain, denies limited range of motion or recent injury Skin: Denies rash, lesions, or wounds, denies changes to skin color Neuro: Denies nubmness in extremities, h/a, s/s of stroke Fish: Denies easy bruiding/bleeding Medications/Allergies Home Medications ?Medication ?Instructions ?Recorded ?Confirmed ?Last Taken ?Type B.coagulans 2 billion 1 cap PO DAILY 06/04/2109/0105/16/22 History cell-digestive enzymes combo no.10 capsule (Digestive Advantage Probiotics Plus Gas) omega-3 fatty acids 1,000 mg 1,000 mg PO DAILY 2 09/26/24 05/15/22 History capsule (Fish Oil Concentrate) aspirin 81 mg tablet,delayed 81 mg PO DAILY #90 tabs 0 07/09/21 09/26/24 05/16/22 Rx release (Adult Low Dose Aspirin) diltiazem HCl 300 mg 300 mg PO DAILY #90 caps 09/26/24 Unknown Rx capsule,extended release 24 hr hydralazine 25 mg tablet 25 mg PO BID #90 tabs 09/26/24 Unknown Rx irbesartan 300 mg tablet (Avapro) 300 mg PO DAILY #90 tabs 06/15/24 09/26/24 Unknown Rx rivaroxaban 2.5 mg tablet (Xarelto) 2.5 mg PO BID #60 tabs 06/15/24 09/26/24 Unknown Rx rosuvastatin 5 mg tablet 5 mg PO DAILY #90 tabs 06/1509/26/24 Unknown Rx Allergies Allergy/AdvReac Type Severity Reaction Status Date / Time No Known Allergies Allergy Verified 04/27/25 15:01 Current Medications Generic Name Dose Route Start Last Admin Trade Name Thaddeus PRN Reason Stop Dose Admin Aspirin 81 mg 09/27/24 09:00 09/27/24 08:53 Aspirin 81 Mg Ec Tablet PO 81 mg DAILY CROW Administration Atorvastatin Calcium 20 mg 09/27/24 09:00 09/27/24 08:53 Atorvastatin 10 Mg Tablet PO 20 mg DAILY CROW Administration Diltiazem HCl 300 mg 09/27/24 09:00 09/27/24 08:53 Diltiazem Er (24hr) 300 Mg Capsule PO 300 mg DAILY CROW Administration Enoxaparin Sodium 100 mg 09/26/24 21:00 09/27/24 08:55 Enoxaparin 100 Mg/Ml Syringe 1 mg/kg (100 mg) 100 mg SUBCUT Administration Q12H [facility] Folic Acid 1 mg 09/27/24 09:00 09/27/24 08:53 Folic Acid 1 Mg Tablet PO 1 mg DAILY CROW Administration Hydralazine HCl 25 mg 09/26/24 18:38 09/27/24 08:53 Hydralazine 25 Mg Tablet PO 25 mg BID CROW Administration Losartan Potassium 100 mg 09/27/24 09:00 09/27/24 08:53 Losartan 50 Mg Tablet PO 100 mg DAILY CROW Administration Multivitamins Therapeutic 1 tab 09/27/24 09:00 09/27/24 08:53 Multivitamin Therapeutic Tablet PO 1 tab DAILY CROW Administration Pantoprazole Sodium 40 mg 09/26/24 18:38 09/26/24 20:03 Pantoprazole 40 Mg Sdv IVP 40 mg Q24H CROW Administration Thiamine Mononitrate 100 mg 09/27/24 09:00 09/27/24 08:53 Thiamine 100 Mg Tablet PO 100 mg DAILY CROW Administration PFSH Acute 2 PFSH: Medical History Myelopathy of lumbar region Tubular adenoma of colon Dyslipidemia Diverticula, colon Fatty infiltration of liver Essential hypertension Paroxysmal atrial fibrillation Surgical History History of colonoscopy with polypectomy May 2022 in 3-5 year follow up. History of surgery on wrist Carpel tunnel bilateral History of shoulder surgery Bilateral Family History Mother Diabetes Hypertension Heart disease Father Hypertension Heart disease Grandfather Hypertension Other Hyperlipidemia Denies family history of CAD (coronary artery disease) Clotting disorder Dementia Psychiatric illness Chronic kidney disease (CKD) Suicide Anesthesia complication Bleeding disorder Family history of premature coronary artery disease Lung disease Cancer Stroke Social History Smoking and tobacco/nicotine status: current every day tobacco/nicotine user smokeless tobacco Second hand smoke exposure: No Alcohol intake: current Alcohol intake frequency: 0-2 Drinks per Day Alcohol type: beer Substance/Drug Use: never Adopted: No Caregiver/support person: No Lives independently: Yes Household members: spouse Housing: House Marital status: Number of children: 3 service: No Current occupational status: employed Pets and animals: Yes Do you think of yourself as: Straight/Heterosexual Current gender identity: Male Vitals/I&O/Wt Last Vital Signs Temp 97.1 F L 09/27/24 12:00 Pulse 76 09/27/24 12:00 Resp 20 H 09/27/24 12:00 BP 133/80 09/27/24 12:00 Pulse Ox 98 09/27/24 12:00 O2 Del Method Room Air 09/27/24 12:00 09/26/24 09/27/24 09/27/24 22:59 06:59 14:59 Intake Total 360 / 360 Output Total 125 / 125 Balance -125 / -125 360 / 360 Weight last 48 hrs Weight 234 lb 14.4 oz Weight 229 lb Weight 229 lb Physical Exam 2 Narrative: General: No apparent distress, healthy appearing, well nourished HENMT: normoceophalic Muskuloskeletal: Full ROM Respiratory: Normal respiratory effort, clear to auscultation bilaterally throughout all lung davis, no use of accessory muscles Cardio: No JVD, regular rate, regular rhythm, S1 S2 normal, no murmurs, peripheral pulses 2+ radial palpated bilaterally GI: Normal to inspection, nondistended Extremities: Full ROM, normal, normal capillary refill, no cyanosis or edema Neuro: Alert and oriented x4, no focal motor deficits Psych: Affect normal, denies suicidal ideation, mental status grossly normal Skin: No rashes or lesions noted, no wounds Data 09/27/24 05:09 09/27/24 05:09 A&P Assessment and plan (1) NSTEMI (non-ST elevated myocardial infarction): (2) Exertional chest pain: (3) Dyslipidemia: (4) Atrial fibrillation: Qualifiers: Atrial fibrillation type: unspecified chronic Qualified Code(s): I48.20 - Chronic atrial fibrillation, unspecified (5) Essential hypertension: Plan Patient has evidence of NSTEMI with ongoing chest pain on exertion relieved with rest. At this time he is chest pain-free. Stress test was abnormal. He will need a left heart cath with possible PCI. We will do this tomorrow at 6 AM. The risk and benefits were discussed in detail with the patient by Dr. Soto. The risk of bleeding, hematoma, vascular injury, myocardial infarction, myocardial perforation, malignant cardiac arrhythmias ,CVA, renal failure and other concomitant complications were explained in detail. He agrees to proceed. Continue Lovenox for stroke prophylaxis. Continue aspirin. Continue home dose losartan and diltiazem for A-fib and blood pressure management. Current blood pressure and heart rate are well-controlled. Will add isosorbide mononitrate 30 mg as well. Thank you Dr. Woodard for allowing us to care for this very pleasant 64-year-old gentleman. PDMP PDMP Reviewed: Not Reviewed Consult Attestations 2 Medical Necessity Statement: Deferred to primary Coding Level of Care Code Acute Code for [facility] Diagnoses NSTEMI (non-ST elevated myocardial infarction) I21.4 Exertional chest pain R07.9 Dyslipidemia E78.5 Chronic atrial fibrillation I48.20 Atrial fibrillation type: unspecified chronic Essential hypertension I10
--- OUTSIDE RECORDS SUMMARY | 2024-09-27 16:07 | XMS_ITS | Clinical Summary ---
Author Organization [facility] de Address [address] [place] [address] Phone Care Team Providers Care Affiliate Marketing Coordinator Name Role Phone Unavailable Primary Care Provider Unavailabl e Allergies No known active allergies Medications metoprolol succinate ER 24 hour (TOPROL-XL) 50 mg Oral tablet Take 50 mg by mouth daily. Active 0mega-3 fatty acids-vitamin E (FISH OIL) 1,000 mg Oral Cap Take 1,000 mg by mouth 2 times daily. Active loratadine 10 mg Oral Cap Take 10 mg by mouth daily. Active ibuprofen (MOTRIN) 200 mg Oral Cap Take 1,000 mg by mouth daily. Active aspirin (SANDY) 325 mg Oral tablet Take 325 mg by mouth daily. Active propafenone (RYTHMOL) 150 mg Oral Tab Take 1 Tab by mouth every 8 hours. 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 Gender Identity Not on file Sexual Orientation Not on file Last Filed Vital Signs Vital Sign Reading Time Taken Comments Blood Pressure 138/84 08/28/2010 10:54 AM CDT Pulse 60 08/28/2010 10:54 AM CDT Temperature - - Respiratory Rate - - Oxygen Saturation - - Inhaled Oxygen Concentration - - Weight 99.8 kg (220 lb) 08/28/2010 10:54 AM CDT Height 182.9 cm (6') 08/28/2010 10:54 AM CDT Body Mass Index 29.84 08/28/2010 10:54 AM CDT Plan of Treatment Health Maintenance Due Date Last Done Comments DTAP/TDAP/TD VACCINES (1 - Tdap) 02/05/1980 COLORECTAL SCREENING 2006 Colorectal Cancer Screening 2006 FIT-DNA Q 3 years 2006 FIT/FOBT Q 1 year 2006 Flex Sig/CT Colonography Q 5 years 2006 ZOSTER VACCINE (1 of 2) 2011 INFLUENZA VACCINE (#1) 2024 RSV VACCINE (60+ or ) (1 - 1-dose 75+ series) 02/05/2036 Insurance BS
[2024-09-27] MEDS: pantoprazole 40 mg SDV IVP (17:40)
[2024-09-28] VITALS (11 sets, daily range): BP systolic 102–137; BP diastolic 61–82; PULSE 49–75; RESP 13–24; TEMP 36.3–36.7; O2SAT 92–99
[2024-09-28 03:12] LABS: Basophils % 0.3 %; Eosinophils # 0.1 10^3/uL (0.0-0.8); Eosinophils % 1.5 %; Hematocrit 44.3 % (37-53); Lymphocytes # 1.9 10^3/uL (0.8-4.8); Lymphocytes % 32.3 %; Mean Corpuscular HGB Conc 32.7 g/dL (30-55); Mean Corpuscular Hemoglobin 30.5 pg (27-33); Mean Corpuscular Volume 93.1 fl (82-101); Mean Platelet Volume 11.3 fL (7.4-10.4); Monocytes # 0.7 10^3/uL (0.2-0.9); Monocytes % 11.5 %; Neutrophils # 3.26 10^3/uL (1.8-7.7); Neutrophils % 54.2 %; Nucleated Red Blood Cells % 0 %; Platelet Count 174 10^3/cmm (157-399); Red Blood Count 4.76 10^6/uL (3.85-5.65); Red Cell Distribution Width 12.4 % (12.1-15.1); White Blood Count 6.01 10^3/uL (3.29-11.43)
[2024-09-28 03:40] LABS: Anion Gap 14.1 (5-19); Blood Urea Nitrogen 11 mg/dL (8-23); Calcium 8.8 mg/dL (8.5-10.5); Carbon Dioxide 26 mmol/L (22-29); Chloride 102 mmol/L (98-107); Creatinine Clr Calc Pharmacy 136.2466; Glomerular Filtration Rate 113.9 mL/min (90-130); Glucose 86 mg/dL (65-115); Osmolality Calculated 285 mOsm/kg (285-295); Potassium 4.1 mmol/L (3.5-5.1); Sodium 138 mmol/L (136-145)
[2024-09-28] MEDS: diphenhydrAMINE 50 mg Capsule PO (04:56)
[2024-09-28] MEDS: sodium chloride 0.9% 1,000 ML 50 ML IV (04:56)
--- NOTE | 2024-09-28 06:38 | W.PM.OPSUD ---
Surgery/Procedure H&P Update DATE OF PROCEDURE: September 28, 2024 DATE H&P PERFORMED: 09/27/24 H&P UPDATE INFORMATION: I have reviewed H&P completed within last 30 days, I have examined patient prior to procedure and No changes to prior documentation PREOP DIAGNOSIS: Chest pain abnormal stress/ PLANNED PROCEDURE: Left heart cath/PCI indicate PATIENT REASSESSED PRIOR TO SEDATION, WITH NO CHANGE NOTED: Yes PHYSICAL EXAM: alert, oriented x 3, clear to auscultation bilaterally, regular rate & rhythm and operative site marked AIRWAY EVAL/ANESTHESIA PLAN: ASA II, Risks, benefits & alternatives of sedation and/or procedure discussed and Patient agrees to continue as planned ADDITIONAL INFORMATION: Patient has been explained all risk-benefit and alternative for the procedure. Patient understand 2% risk of stroke major bleed, patient understands expected risk of contrast-induced nephropathy pseudo aneurysm hematoma vascular injury leading to urgent emergent vascular and bypass surgery. Patient would like to proceed with it after understanding all risks and benefits.
--- NOTE | 2024-09-28 07:30 | PC.NURSE ---
Patient at labor delivery rn at shift change.
--- NOTE | 2024-09-28 07:48 | PM.PROC ---
Procedure Note: Date of procedure: 09/28/24 Pre-procedure diagnosis: Abnormal stress test/chest pain Post-procedure diagnosis: same Procedure: Left heart cath Left main: LAD has proximal and mid high-grade significant stenosis both were treated with 2 drug-eluting stent postdilated with noncompliant balloon. Excellent angiographic result with RENA-3 flow was confirmed at the end of the case Left circumflex is dominant large without significant stenosis RCA is moderate-sized in caliber vessel without significant stenosis Left ventricular end-diastolic pressure is 22 mmHg Left ventricle ejection fraction is normal 60% Coding Level of Care Code Acute Code for Chg Fwd
--- NOTE | 2024-09-28 08:01 | PC.NURSE ---
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
[2024-09-28] MEDS: sodium chloride 0.9% 1,000 ML 100 ML IV (08:56)
[2024-09-28] MEDS: losartan 50 mg Tablet 100 MG PO (08:58)
[2024-09-28] MEDS: aspirin 81 mg EC Tablet PO (08:58)
[2024-09-28] MEDS: hyDRALAzine 25 mg Tablet PO ×2 (08:58→17:26)
[2024-09-28] MEDS: isosorbide mononitrate ER 30 mg Tablet PO (08:58)
[2024-09-28] MEDS: folic acid 1 mg Tablet PO (08:58)
[2024-09-28] MEDS: multivitamin therapeutic Tablet 1 TAB PO (08:58)
[2024-09-28] MEDS: dilTIAZem ER (24HR) 300 mg Capsule PO (08:58)
[2024-09-28] MEDS: thiamine 100 mg Tablet PO (08:59)
[2024-09-28] MEDS: enoxaparin 100 mg/mL Syringe SUBCUT (08:59)
[2024-09-28] MEDS: ATORVASTATIN 10 MG TABLET 20 MG PO (08:59)
--- NOTE | 2024-09-28 15:45 | PC.NURSE ---
Patient's right radial TR-band; air is removed 2ml's at a time slowly. TR-band is removed and a dressing of 2 x 2 and tegaderm is placed. No hematoma is noted. Patient is reeducated that he is not to use his right wrist/hand for 24 hours. Patient states understanding and tolerated the removal well.
--- NOTE | 2024-09-28 16:18 | P.PN_ITS ---
Subjective 2 Subjective: Patient was seen this morning, he is sitting up in a chair, currently chest pain-free, status post cardiac cath, had 2 drug-eluting stents to LAD, Vitals/I&O/Wt Last Vital Signs Temp 97.3 F L 09/28/24 11:17 Pulse 55 L 09/28/24 11:17 Resp 14 09/28/24 11:17 BP 102/65 09/28/24 11:56 Pulse Ox 98 09/28/24 11:17 O2 Del Method Room Air 09/28/24 11:17 09/28/24 09/28/24 09/28/24 06:59 14:59 22:59 Intake Total 600 / 600 Balance 600 / 600 Weight last 48 hrs Weight 105.404 kg Weight 106.549 kg Weight 103.873 kg Physical Exam 2 Const: COMMON NORMALS: no acute distress and patient oriented x3 Resp: COMMON NORMALS: normal respiratory effort, No retractions, No use of accessory muscles and clear to auscultation bilaterally AUSCULTATION: clear to auscultation bilaterally Cardio: COMMON NORMALS: regular rate, regular rhythm, S1 normal heart sound present and S2 normal heart sound present RATE: regular rate RHYTHM: r egular rhythm HEART SOUNDS: S1 normal heart sound present and S2 normal heart sound present GI: COMMON NORMALS: Normal to inspection, nondistended, normoactive bowel sounds present and non-tender Extremity: COMMON NORMALS: no clubbing, cyanosis or edema, no calf tenderness and no pedal edema Neuro: COMMON NORMALS: patient oriented x3 Psych: COMMON NORMALS: mental status grossly normal Data 09/28/24 02:17 09/28/24 02:17 A&P Assessment and plan (1) Essential hypertension: (2) Atrial fibrillation: Qualifiers: Atrial fibrillation type: unspecified chronic Qualified Code(s): I48.20 - Chronic atrial fibrillation, unspecified (3) Dyslipidemia: (4) Obesity (BMI 30-39.9): (5) Exertional chest pain: (6) NSTEMI (non-ST elevated myocardial infarction): Plan Chest pain, NSTEMI - Currently chest pain-free - EKG shows ST depressions in lateral leads - Initial troponin 30 - Status post coronary angiography, found to have proximal and mid high-grade significant stenosis both treated with 2 drug-eluting stents -Currently chest pain-free Plan - Serial troponins, serial EKGs, telemetry monitoring - Cardiac echo - Aspirin, statin, Plavix - Switch back to low-dose Eliquis tonight - Nitro as needed for chest pain - Morphine as a for chest pain - CIWA protocol - Full code - Lovenox for DVT prophylaxis PDMP PDMP Reviewed: Not Reviewed Attestations 2 Medical Necessity Statement*: Patient requires hospitalization for NSTEMI, chest pain, had 2 stents placed in LAD Diagnoses Essential hypertension I10 Chronic atrial fibrillation I48.20 Atrial fibrillation type: unspecified chronic Dyslipidemia E78.5 Obesity (BMI 30-39.9) E66.9 Exertional chest pain R07.9 NSTEMI (non-ST elevated myocardial infarction) I21.4
[2024-09-28] MEDS: pantoprazole 40 mg SDV IVP (17:26)
[2024-09-29 04:00] VITALS: BP 114/76; PULSE 62; RESP 11; TEMP 36.4; O2SAT 96
[2024-09-29 05:51] LABS: Basophils % 0.3 %; Eosinophils # 0.1 10^3/uL (0.0-0.8); Eosinophils % 1.2 %; Hematocrit 41.6 % (37-53); Lymphocytes # 1.5 10^3/uL (0.8-4.8); Lymphocytes % 21.5 %; Mean Corpuscular HGB Conc 33.4 g/dL (30-55); Mean Corpuscular Volume 92.7 fl (82-101); Mean Platelet Volume 11.2 fL (7.4-10.4); Monocytes # 0.8 10^3/uL (0.2-0.9); Monocytes % 11.7 %; Neutrophils # 4.52 10^3/uL (1.8-7.7); Nucleated Red Blood Cells % 0 %; Platelet Count 159 10^3/cmm (157-399); Red Blood Count 4.49 10^6/uL (3.85-5.65); Red Cell Distribution Width 12.3 % (12.1-15.1); White Blood Count 6.94 10^3/uL (3.29-11.43)
[2024-09-29 06:24] LABS: Anion Gap 14.9 (5-19); Blood Urea Nitrogen 10 mg/dL (8-23); Calcium 8.5 mg/dL (8.5-10.5); Carbon Dioxide 24 mmol/L (22-29); Chloride 104 mmol/L (98-107); Creatinine Clr Calc Pharmacy 136.6072; Glomerular Filtration Rate 113.9 mL/min (90-130); Glucose 87 mg/dL (65-115); Osmolality Calculated 286 mOsm/kg (285-295); Potassium 3.9 mmol/L (3.5-5.1); Sodium 139 mmol/L (136-145)
[2024-09-29 07:51] VITALS: BP 143/72; PULSE 61; RESP 14; TEMP 36.5; O2SAT 98
[2024-09-29] MEDS: thiamine 100 mg Tablet PO (08:48)
[2024-09-29] MEDS: apixaban 5 mg Tablet 2.5 MG PO (08:48)
[2024-09-29] MEDS: folic acid 1 mg Tablet PO (08:48)
[2024-09-29] MEDS: aspirin 81 mg EC Tablet PO (08:48)
[2024-09-29 08:49] VITALS: BP 143/72
[2024-09-29] MEDS: multivitamin therapeutic Tablet 1 TAB PO (08:49)
[2024-09-29] MEDS: dilTIAZem ER (24HR) 300 mg Capsule PO (08:49)
[2024-09-29] MEDS: ATORVASTATIN 10 MG TABLET 20 MG PO (08:49)
[2024-09-29] MEDS: hyDRALAzine 25 mg Tablet PO (08:49)
[2024-09-29] MEDS: losartan 50 mg Tablet 100 MG PO (08:49)
[2024-09-29] MEDS: isosorbide mononitrate ER 30 mg Tablet PO (08:49)
[2024-09-29] MEDS: clopidogrel 75 mg Tablet PO (08:50)
[2024-09-29 11:21] VITALS: BP 125/74; PULSE 78; RESP 20; O2SAT 98
--- NOTE | 2024-09-29 11:30 | PM.DCS ---
Discharge Providers Date of Admission: 09/26/24 16:12 Date of Discharge: September 29, 2024 Attending Provider at Admission: Freddie Woodard MD Attending Provider at Discharge: Freddie Woodard MD Primary Care Provider: NEGRITA Bean Diagnoses at Discharge Discharge Diagnosis (1) Essential hypertension: Status: Chronic (2) Atrial fibrillation: Status: Chronic Qualifiers: Atrial fibrillation type: unspecified chronic Qualified Code(s): I48.20 - Chronic atrial fibrillation, unspecified (3) Dyslipidemia: Status: Chronic (4) Obesity (BMI 30-39.9): Status: Chronic (5) Exertional chest pain: Status: Resolved (6) NSTEMI (non-ST elevated myocardial infarction): Status: Resolved Reason for Visit Reason for Visit: cp/tingle in left arm Hospital Course Hospital Course Ernesto Winslow is a 64 year old male with a past medical history of hypertension, atrial fibrillation, on Xarelto, hyperlipidemia, obesity, extensive family history of CAD who presents to [facility] for chest discomfort. Currently patient alert oriented x 3, following commands, family members are at bedside., According to patient, whenever he exerts himself, he starts developing anterior chest discomfort, almost like a burning sensation, he tells me it has been having more frequently, more severe especially with exertion, no nausea, no vomiting, no diaphoresis, no radiation, he does report a history of a CABG in his father and his brother in their 60s, does report chewing tobacco, does report alcoholism, drinks 6-7 beers a day, denies any drug use, Patient was admitted to [facility] for chest pain, NSTEMI, -Underwent stress testing - Status post coronary angiography, found to have proximal and mid high-grade significant stenosis both treated with 2 drug-eluting stents - Discharged on aspirin, Eliquis, Plavix, Imdur, with close follow-up with cardiology as outpatient - Patient was advised to continue aspirin, low-dose Eliquis, Plavix - If he has any blood or black stools go to emergency room, follow-up with cardiology - If any recurrent chest pain to go to emergency room Physical Exam Const: COMMON NORMALS: no acute distress and patient oriented x3 Resp: COMMON NORMALS: normal respiratory effort, No retractions, No use of accessory muscles and clear to auscultation bilaterally AUSCULTATION: clear to auscultation bilaterally Cardio: COMMON NORMALS: regular rate, regular rhythm, S1 normal heart sound present and S2 normal heart sound present RATE: regular rate RHYTHM: regular rhythm HEART SOUNDS: S1 normal heart sound present and S2 normal heart sound present GI: COMMON NORMALS: Normal to inspection, nondistended, normoactive bowel sounds present and non-tender Extremity: COMMON NORMALS: no pedal edema Neuro: COMMON NORMALS: patient oriented x3 Psych: COMMON NORMALS: mental status grossly normal Discharge Data Studies Completed and Pending Completed Studies During Hospitalization Category Date Time Status Sestamibi Stress Test Request Routine Exams 09/26/24 18:38 Draft XR chest 1V portable [id number] Stat Exams 09/26/24 14:52 Completed CV. 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 Laboratory Results WBC 6.94 10^3/uL (3.29-11.43) 09/29/24 03:21 RBC 4.49 10^6/uL (3.85-5.65) 09/29/24 03:21 Hgb 13.90 g/dL (11.27-16.99) 09/29/24 03:21 Hct 41.6 % (37-53) 09/29/24 03:21 MCV 92.7 fl (82-101) 09/29/24 03:21 MCH 31.0 pg (27-33) 09/29/24 03:21 MCHC 33.4 g/dL (30-55) 09/29/24 03:21 RDW 12.3 % (12.1-15.1) 09/29/24 03:21 Plt Count 159 10^3/cmm (157-399) 09/29/24 03:21 MPV 11.2 fL (7.4-10.4) H 09/29/24 03:21 Neut % (Auto) 65.0 % 09/29/24 03:21 Lymph % (Auto) 21.5 % 09/29/24 03:21 Page % (Auto) 11.7 % 09/29/24 03:21 Eos % (Auto) 1.2 % 09/29/24 03:21 Baso % (Auto) 0.3 % 09/29/24 03:21 Neut # (Auto) 4.52 10^3/uL (1.8-7.7) 09/29/24 03:21 Lymph # (Auto) 1.5 10^3/uL (0.8-4.8) 09/29/24 03:21 Page # (Auto) 0.8 10^3/uL (0.2-0.9) 09/29/24 03:21 Eos # (Auto) 0.1 10^3/uL (0.0-0.8) 09/29/24 03:21 Baso # (Auto) 0.0 10^3/uL (0.0-0.1) 09/29/24 03:21 Nucleated RBC % (auto) 0 % 09/29/24 03:21 Nucleated RBCs # 0.0 /100WBC 09/29/24 03:21 PT 14.50 SECONDS (12.1-14.9) 09/26/24 15:15 INR 1.05 (0.8-1.2) 09/26/24 15:15 Sodium 139 mmol/L (136-145) 09/29/24 03:21 Potassium 3.9 mmol/L (3.5-5.1) 09/29/24 03:21 Chloride 104 mmol/L (98-107) 09/29/24 03:21 Carbon Dioxide 24 mmol/L (22-29) 09/29/24 03:21 Anion Gap 14.9 (5-19) 09/29/24 03:21 BUN 10 mg/dL (8-23) 09/29/24 03:21 Creatinine 0.7 mg/dL (0.7-1.2) 09/29/24 03:21 GFR Calculation 113.9 mL/min (90-130) 09/29/24 03:21 Glucose 87 mg/dL (65-115) 09/29/24 03:21 Estimat Average Glucose 100 09/26/24 15:15 Hemoglobin A1c 5.1 % (4.0-6.0) 09/26/24 15:15 Calculated Osmolality 286 mOsm/kg (285-295) 09/29/24 03:21 Calcium 8.5 mg/dL (8.5-10.5) 09/29/24 03:21 Total Bilirubin 0.2 mg/dL (0.15-1.2) 09/27/24 05:09 AST 19 U/L (0-40) 09/27/24 05:09 ALT 26 U/L (0-41) 09/27/24 05:09 Alkaline Phosphatase 86 U/L (40-130) 09/27/24 05:09 Troponin T Baseline 30 ng/L (0-15) H 09/26/24 15:15 Troponin T 120 Minute 44.22 ng/L (0-15) H 09/26/24 17:35 Delta Troponin T 14.22 ABS# (0-10) H* 09/26/24 17:35 Troponin T Hi Sens 6Hr 30.53 ng/L (0-15) H 09/26/24 20:59 Troponin T Hi Sens 6Hr Delta 0.53 ng/L (0-12) 09/26/24 20:59 NT-Pro-B Natriuret Pep 637 pg/mL (0-125) H 09/26/24 15:15 Total Protein 7.0 g/dL (6.6-8.7) 09/27/24 05:09 Albumin 4.1 g/dL (3.5-5.2) 09/27/24 05:09 Globulin 2.9 g/dL (1.3-4.6) 09/27/24 05:09 Triglycerides 97 mg/dL (0-150) 09/26/24 17:35 Cholesterol 162 mg/dL (0-200) 09/26/24 17:35 LDL Cholesterol, Calc 91 mg/dL (50-129) 09/26/24 17:35 HDL Cholesterol 52 mg/dL (60-100) L 09/26/24 17:35 LDL/HDL Ratio 1.75 RATIO (0.00-3.22) 09/26/24 17:35 Cholesterol/HDL Ratio 3.12 mg/dL (1.0-5.00) 09/26/24 17:35 Lipase 21 U/L (13-60) 09/26/24 15:15 TSH 0.91 uIU/mL (0.27-4.20) 09/26/24 17:35 Urine Opiates Screen Negative ng/mL (Negative) 09/26/24 21:45 Ur Barbiturates Screen Negative ng/mL (Negative) 09/26/24 21:45 Ur Phencyclidine Scrn Negative ng/mL (Negative) 09/26/24 21:45 Ur Amphetamines Screen Negative ng/mL (Negative) 09/26/24 21:45 U Benzodiazepines Scrn Negative ng/mL (Negative) 09/26/24 21:45 Urine Cocaine Screen Negative ng/mL (Negative) 09/26/24 21:45 U Marijuana (THC) Screen Negative ng/mL (Negative) 09/26/24 21:45 Ethyl Alcohol < 10 mg/dL (0-10) 09/26/24 17:35 Vitals Last Vital Signs Temp 97.7 F 09/29/24 07:51 Pulse 78 09/29/24 11:21 Resp 20 H 09/29/24 11:21 BP 125/74 09/29/24 11:21 Pulse Ox 98 09/29/24 11:21 O2 Del Method Room Air 09/29/24 07:51 Discharge Plan Discharge Patient Disposition: Home Condition: Stable Prescriptions: New losartan 50 mg Tablet 100 mg PO DAILY 30 Days Qty: 60 0RF clopidogrel 75 mg Tablet 75 mg PO DAILY 30 Days Qty: 30 0RF folic acid 1 mg Tablet 1 mg PO DAILY 30 Days Qty: 30 0RF Eliquis 5 mg Tablet 2.5 mg PO BID@0900,2100 30 Days Qty: 30 0RF isosorbide mononitrate 30 mg Tablet Extended Release 24 Hr 30 mg PO DAILY 30 Days Qty: 30 0RF nitroglycerin 0.4 mg Tablet, Sublingual 0.4 mg sublingual Q5M PRN (Reason: Chest Pain) 30 Days Qty: 30 0RF thiamine mononitrate (vit B1) [Vitamin B-1 (mononitrate)] 100 mg Tablet 100 mg PO DAILY 30 Days Qty: 30 0RF Continued Digest Adv Probio Plus Gas 2 billion cell capsule 1 cap PO DAILY omega-3 fatty acids [Fish Oil Concentrate] 1,000 mg capsule 1,000 mg PO DAILY rosuvastatin 5 mg tablet 5 mg PO DAILY Qty: 90 1RF hydralazine 25 mg tablet 25 mg PO BID 30 Days Qty: 60 1RF aspirin [Adult Low Dose Aspirin] 81 mg tablet,delayed release (DR/EC) 81 mg PO DAILY 30 Days Qty: 30 0RF diltiazem HCl 300 mg capsule,extended release 24hr 300 mg PO DAILY 30 Days Qty: 30 1RF Discontinued irbesartan [Avapro] 300 mg tablet 300 mg PO DAILY Qty: 90 1RF Xarelto 2.5 mg tablet 2.5 mg PO BID Qty: 60 5RF Discharge Orders: Discharge Order (Routine); Ordered 09/29/24 Ordered By: Freddie Woodard Referrals: Constanza Santillan NP [Nurse Practitioner, Cardiology] - 10/06/24 8:30 am Florencio Cortes, [employer] P[employer]ING MACHINE OPERATOR-C [Primary Care Provider, Family Practice] - 10/07/24 9:40 am Discharge Diet: Cardiac Discharge Activity: Resume usual activity Patient Instructions: Nitroglycerin (By mouth), Losartan (By mouth) (Cozaar), Isosorbide Mononitrate (By mouth) (Imdur, Imdur ER, Ismo), Clopidogrel (By mouth) (Plavix), Apixaban (By mouth) (Eliquis), Coronary Angioplasty (DC), Heart Healthy Diet (DC), Chest Pain Stoplight, Opioid Safety, Post Angiogram Home Care Instructions Activity Restrictions/Additional Instructions: - If you have recurrent chest pain please go to the emergency room -Please continue aspirin, Plavix, do not stop taking these medications -If you develop bloody black stools or significant nosebleed please go to the emergency room - Please continue Eliquis 2.5 mg twice daily - Your Xarelto has been stopped please discard these medications -Please follow-up with cardiology Discharge Attestations Time Spent in Discharge Care*: greater than 30 min Quality Metrics Clinical Quality Measures [ No reported AMI, CVA or VTE this stay] Coding Level of Care Code 02418 Total time (in minutes) for Discharge: 45 Diagnoses Essential hypertension I10 Chronic atrial fibrillation I48.20 Atrial fibrillation type: unspecified chronic Dyslipidemia E78.5 Obesity (BMI 30-39.9) E66.9 Exertional chest pain R07.9 NSTEMI (non-ST elevated myocardial infarction) I21.4
[2024-09-29 11:50] VITALS: BP 125/74; PULSE 71; RESP 16; TEMP 36.5; O2SAT 95
--- NOTE | 2024-09-29 13:01 | P.PN_ITS ---
<Statement entered by Adilson Dow M.D - 09/30/24 07:26> Patient was cared for in conjunction with an advanced practice practitioner.? I reviewed the chart and all pertinent data including imaging, telemetry, and laboratory results.? I discussed the patient in detail with the advanced practice practitioner.? Please see? their note for complete progress note, testing results and agreed upon plan of care for the patient. Subjective 2 Subjective: Patient seen today on rounds. He is doing well status post stent to LAD x 2. Denies chest pain or shortness of breath. He has been up walking. Discussion was had with patient on anticoagulants. Vitals/I&O/Wt Last Vital Signs Temp 97.7 F 09/29/24 11:50 Pulse 71 09/29/24 11:50 Resp 16 09/29/24 11:50 BP 125/74 09/29/24 11:50 Pulse Ox 95 09/29/24 11:50 O2 Del Method Room Air 09/29/24 07:51 09/28/24 09/29/24 09/29/24 22:59 06:59 14:59 Intake Total 2480 / 3080 200 / 3280 360 / 360 Balance 2480 / 3080 200 / 3280 360 / 360 Weight last 48 hrs Weight 236 lb 3.2 oz Weight 232 lb 6 oz Physical Exam 2 Narrative: General: No apparent distress, healthy appearing, well nourished HENMT: normoceophalic Muskuloskeletal: Full ROM Respiratory: Normal respiratory effort, clear to auscultation bilaterally throughout all lung davis, no use of accessory muscles Cardio: No JVD, regular rate, regular rhythm, S1 S2 normal, no murmurs, peripheral pulses 2+ radial palpated bilaterally GI: Normal to inspection, nondistended Extremities: Full ROM, normal, normal capillary refill, no cyanosis or edema Neuro: Alert and oriented x4, no focal motor deficits Psych: Affect normal, denies suicidal ideation, mental status grossly normal Skin: Radial site clean dry intact no signs or symptoms of hematoma present Data 09/29/24 03:21 09/29/24 03:21 A&P Assessment and plan (1) NSTEMI (non-ST elevated myocardial infarction): (2) Exertional chest pain: (3) Dyslipidemia: (4) Atrial fibrillation: (5) Essential hypertension: Plan At this time from our standpoint patient may be discharged will see us in the clinic in 1 week. Continue current medication. Continue aspirin and Plavix at least for 1 year. Patient was educated to watch for s/s of severe bleeding. PDMP PDMP Reviewed: Not Reviewed Attestations 2 Medical Necessity Statement*: Deferred to primary Coding Level of Care Code Acute Code for [facility] Diagnoses NSTEMI (non-ST elevated myocardial infarction) I21.4 Exertional chest pain R07.9 Dyslipidemia E78.5 Chronic atrial fibrillation I48.20 Atrial fibrillation type: unspecified chronic Essential hypertension I10
== END 2024-09-29 11:52 | disposition home or self-care (01) | DRG 322 ==
LOC: ER 16:18 → CSU 19:32
PROVIDERS: Emergency Medicine; Internal Medicine Cardiovascular Disease; Nurse Practitioner Family; Admitting Provider Family Medicine; Emergency Provider Physician Assistant; PCP Nurse Practitioner; Visit Provider Family Medicine
PROC: 027035Z Dilation of Coronary Artery, One Artery with Two Drug-eluting Intraluminal Devices, Percutaneous Approach (ICD-10-PCS; principal; 2024-09-28 06:00)
PROC: 027035Z Dilation of Coronary Artery, One Artery with Two Drug-eluting Intraluminal Devices, Percutaneous Approach (ICD-10-PCS; 2024-09-28 06:00)
DX: I21.4 Non-ST elevation (NSTEMI) myocardial infarction (principal); I10 Essential (primary) hypertension; E78.5 Hyperlipidemia, unspecified; E66.9 Obesity, unspecified; Z68.31 Body mass index [BMI] 31.0-31.9, adult; I48.91 Unspecified atrial fibrillation; Z79.899 Other long term (current) drug therapy; Z79.82 Long term (current) use of aspirin; I48.0 Paroxysmal atrial fibrillation; F17.210 Nicotine dependence, cigarettes, uncomplicated; Z79.01 Long term (current) use of anticoagulants; F10.20 Alcohol dependence, uncomplicated; I25.119 Atherosclerotic heart disease of native coronary artery with unspecified angina pectoris
CPT/HCPCS: 36415; 71045; 78452; 80048; 80053; 80061; 80306; 80307; 83036; 83690; 83880; 84443; 84484; 85025; 85347; 85610; 93005; 93017; 93306; 93458; 96372; 96374; 96375; 96376; 99152; 99153; 99285; A9500; C1725; C1769; C1874; C1887; C1894; C9600; J1644; J1650; J2250; J2470; J2785; J3010; J3411; J3490; J7030; J9999; Q0163; Q9967

== ENCOUNTER → 2024-10-06 09:19 | Outpatient (BNVA) | payer OTHER, SELFPAY | PROVIDERS: PCP Nurse Practitioner; Visit Provider Nurse Practitioner Family | DX: I10 Essential (primary) hypertension (principal) | CPT/HCPCS: 36415; 80053; 85025 ==

== ENCOUNTER → 2025-04-18 15:55 | Outpatient (BNVA) | payer OTHER, MEDICAID, SELFPAY | PROVIDERS: PCP Nurse Practitioner; Visit Provider Nurse Practitioner | DX: I10 Essential (primary) hypertension (principal) | CPT/HCPCS: 80053; 80061; 85025 ==